=== PATIENT | female | born 2000 | race Caucasian/White ===

== ENCOUNTER → 2020-12-09 | Outpatient (CLI) | payer OTHER ==
[2020-12-09 09:55] VITALS: TEMP 99.2
[2020-12-09 10:02] VITALS: BP 127/74; PULSE 82; RESP 18
--- NOTE | 2020-12-09 10:20 | P.PAINCN ---
History of Present Illness - Reason for Consult Consult date: 12/09/20 - History of Present Illness This is a 20-year-old patient referred by her PCP for complex regional pain syndrome of the left foot. Primarily in her left lower extremity from the mid roland down involving the entirety of the foot. she also has pain in her bilateral hips radiating all the way down to her feet. She describes a crush injury that happened when she was 11 and she has been through a number of therapies since then. Patient mentions that she's been on ketamine infusions which were relatively helpful, and other very strong medication such as methadone morphine and [place]. She has also tried Neurontin in the past with some good benefit but weaned herself off of this. In regards to her pain her pain is mostly located over the left foot described as sharp and burning and constant throughout the day. She endorses significant sensitivity to even light touch, swelling in the left foot, feeling a warmer temperature in that foot, as well as abnormal hair growth. Overall says her whole body feels like it's made of glass and it is always hurting. Mentions that she has had a sympathetic block when she was 13 but was unsure if it was helpful because of the time she was on methadone and she felt like she was a " zombie." In regards to current therapy she uses marijuana, lidocaine patches, hot showers and cold baths. She tried physical therapy but it made it much worse. Patient denies adverse drug effects from medications. Patient also denies new- onset weakness, bowel/bladder incontinence, or any other signs or symptoms of cauda equina syndrome. There are no signs of acute intoxication, and no indications of medication diversion or overuse. In addition to above, 13-point review of systems is also negative for chest pain, shortness of breath, changes in vision, changes in hearing, new onset weakness, abdominal pain, diarrhea, extreme fatigue, malaise, fever, skin changes, homicidal or suicidal ideation, or bowel or bladder incontinence. Physical exam: Vital Signs: Reviewed in EMR GENERAL: Well appearing, in no acute distress PSYCH: Mood and affect is appropriate. Awake, alert, and oriented SKIN: Skin color, texture, turgor normal, no rashes or lesions HEENT: Normocephalic, atraumatic. EOM intact CV: No pedal edema RESP: Respirations are unlabored, no audible wheezing GI: Abdomen non-distended Focused CRPS examination on left foot Sensory: + [place], hyperalgesia Sudomotor: mild edema Vasomotor: no skin changes that i can discern Motor/trophic: intact ROM, no trophic changes Assessment: 1. CRPS type 2 2. Centralized pain Plan: - At this time she does meet CRPS criteria in regards to her left foot. She has mentioned that she had lumbar sympathetic blocks in the past with some relief like to repeat this. - I also feel that she has an element of centralized pain she mentions that she has pain even to light touch throughout her entire lower extremities. I had A long discussion about the pathophysiology of centralized pain and that it is mos tly managed with relaxation techniques as well as some medication management. In regards to medication Cymbalta is a good medication that she is early on and I did talk to her about Neurontin. She mentioned Neurontin was helpful in the past to try this again. We'll put her on uptitrating dose to 300 mg 3 times a day. She is [place] for breakthrough right levator mostly interventional pain clinic and I do not feel opioids to be helpful for long-term given her young age. I spent 45 minutes on patient care today. The time was used to review medical records including relevant urine studies and prescription history (MAPs), review of the available imaging, evaluation and examination the patient, coordination of care at the medical staff and if applicable referring physicians, as well as creation of the medical record. Past Medical History Past Medical History: GERD/Reflux, Pneumonia Additional Past Medical History / Comment(s): recent issues with nausea, complex regional pain syndrome effecting left leg and both hips History of Any Multi-Drug Resistant Organisms: None Reported Past Surgical History: Orthopedic Surgery, Tonsillectomy Additional Past Surgical History / Comment(s): arthroscopy rt knee Past Anesthesia/Blood Transfusion Reactions: Motion Sickness Smoking Status: Never smoker - Past Family History Mother Family Medical History: No Reported History Medications and Allergies Home Medications Medication Instructions Recorded Confirmed Type DULoxetine HCL [Cymbalta] 60 mg PO DAILY 12/08/20 12/09/20 History Etonogestrel [Nexplanon] 1 implant SQ [id number] 12/08/20 12/09/20 History Lurasidone [Latuda] 40 mg PO 2000 12/08/20 12/09/20 History Pantoprazole Sodium [Protonix] 20 mg PO DAILY 12/08/20 12/09/20 History lamoTRIgine [LaMICtal] 100 mg PO BID 12/08/20 12/09/20 History Gabapentin 300 mg PO TID 30 Days #63 cap 12/09/20 Rx Allergies Allergy/AdvReac Type Severity Reaction Status Date / Time No Known Allergies Allergy Verified 12/08/20 13:20 Physical Exam Vitals: Vital Signs Temp 12/09/20 09:50 99.2 F PQRS Measure Charge Sheet PQRS Narrative: Pain Intensity [Bilateral Hip] 7 Scale Used Numeric (1 - 10) Hx Alcohol Use (MH) No Home Medications: Ambulatory Orders DULoxetine HCL [Cymbalta] 60 mg PO DAILY 12/08/20 Etonogestrel [Nexplanon] 1 implant SQ [id number] 12/08/20 Lurasidone [Latuda] 40 mg PO 2000 12/08/20 Pantoprazole Sodium [Protonix] 20 mg PO DAILY 12/08/20 lamoTRIgine [LaMICtal] 100 mg PO BID 12/08/20 Gabapentin 300 mg PO TID 30 Days #63 cap 12/09/20
== END | disposition home or self-care (01) ==
LOC: PNWHC3 09:22
PROVIDERS: ATTEND Anesthesiology
DX: G90.50 Complex regional pain syndrome I, unspecified (principal); G90.59 Complex regional pain syndrome I of other specified site
CPT/HCPCS: 99202

== ENCOUNTER 2021-01-14 08:37 | Day surgery (SDC) | payer OTHER ==
[2021-01-13 08:50] VITALS: BMI 28.3
[2021-01-14] MEDS ORDERED: LACTATED RINGERS 1,000 ML IV ONE (09:34)
[2021-01-14 09:37] VITALS: RESP 16; TEMP 98.4
[2021-01-14] MEDS ORDERED: IOPAMIDOL M200 10 ML VIAL ONE (09:51)
[2021-01-14] MEDS ORDERED: ROPIVACAINE 5MG/ML 20ML VIAL ONE (09:51)
[2021-01-14] MEDS ORDERED: fentaNYL (PF) 50 MCG/ML 2 ML AMP ONE (09:51)
[2021-01-14] MEDS ORDERED: methylPREDNISolone ACETATE 40 MG/ML 1 ML VIAL ONE (09:51)
[2021-01-14] MEDS ORDERED: MIDAZOLAM 2 MG/2 ML VIAL ONE (09:51)
[2021-01-14] MEDS ORDERED: LACTATED RINGERS 1,000 ML IV SCH (10:09)
[2021-01-14] MEDS ORDERED: IV FLUID CONTINUATION 700 ML IV ONE (10:15)
--- NOTE | 2021-01-14 10:15 | P.PCN ---
Date of Procedure: 01/14/21 Procedure(s) Performed: PREOPERATIVE DIAGNOSIS: complex regional pain syndrome.Type II , left lower Extremities. POSTOPERATIVE DIAGNOSIS: complex regional pain syndrome.Type II , left lower Extremities. . PROCEDURE: left side lumbar sympathetic block with fluoroscopic guidence (fluo roscopy images available in radiology department ) ANESTHESIA: Local with 1% lidocaine 3 ml ; moderate sedation with Versed 3 mg and fentanyl. 100 Micrograms EBL: None. PROCEDURE INDICATION: The patient with RSD which has responded to lumbar sympathetic block. The previous one lasted one month. PROCEDURE DESCRIPTION: The patient was seen and identified in the preoperative area. Risks, benefits, complications, and alternatives were discussed with the patient. The patient agreed to proceed with the procedure and signed the consent. IV was started, and vital signs were stable. Patient was taken to the OR and time out was completed. The patient was placed in the prone position on procedure table and a pillow was placed under the abdomen to reduce lumbar lordosis. The lumbosacral area was prepped and draped in the usual sterile fashion. Critical pause was taken. Vital signs were closely monitored during the procedure. Fluoroscopy was used to identify the L2 vertebra and target points were marked.5 cc Lidocaine 1% was used with a 25 guage needle to achieve adequate local anesthesia of the skin and subcutaneous tissue. 22-guage,5-inch spinal needles were inserted through the skin at the lateral border of the left side of L2 vertebral body and then advanced under fluoroscopic guidance in oblique, anterior, and lateral views. The needles were advanced to the angela-lateral border of the vertebra from the left side and 3cc of Iso-View 200 was injected to confirm needle position. After satisfactory positioning of the needles, and negative aspiration of blood, CSF 15 cc of 0.5 % preservative free Ropivacaine with 80 mg Depo-Medrol was injected with intermittent aspiration. [place] were withdrawn intact. COMPLICATIONS: None. DISPOSITION / PLANS: The patient was placed in a supine position and transferred to the recovery area in a stable condition for observation and was discharged from the recovery room after meeting discharge criteria. Home dischar ge instructions given to the patient by the staff. The patient was reexamined prior to discharge. The patient will schedule a follow up in the clinic
--- NOTE | 2021-01-14 10:21 | FL ---
Fluoroscopy History: SYMPATHETIC NERVE BLOCK PAIN SERVICES SYMPATHETIC NERVE L 3 FL TIME19 SECS
[2021-01-14 10:32] VITALS: BP 110/69; PULSE 78
== END 2021-01-14 10:46 | disposition home or self-care (01) ==
LOC: ORPAIN 08:37
PROVIDERS: ATTEND Specialist
DX: G57.72 Causalgia of left lower limb (principal)
CPT/HCPCS: 81025; 64520; J2250; J1030; J3010; Q9966; J2795; 99152

== ENCOUNTER 2021-05-20 07:18 | Day surgery (SDC) | payer OTHER ==
[2021-05-18 09:20] VITALS: BMI 28.7
[~2021-05-20 07:18] MED LIST: LACTATED RINGERS 1,000 ML IV SCH
[2021-05-20 07:40] VITALS: RESP 16; TEMP 97.1
[2021-05-20] MEDS ORDERED: MIDAZOLAM 2 MG/2 ML VIAL ONE (08:00)
[2021-05-20] MEDS ORDERED: methylPREDNISolone ACETATE 40 MG/ML 1 ML VIAL ONE (08:00)
[2021-05-20] MEDS ORDERED: IOPAMIDOL M200 10 ML VIAL ONE (08:00)
[2021-05-20] MEDS ORDERED: fentaNYL (PF) 50 MCG/ML 2 ML AMP ONE (08:00)
[2021-05-20] MEDS ORDERED: ROPIVACAINE 5MG/ML 20ML VIAL ONE (08:00)
--- NOTE | 2021-05-20 08:24 | P.PCN ---
Date of Procedure: 05/20/21 Procedure(s) Performed: PREOPERATIVE DIAGNOSIS: complex regional pain syndrome.Type II , left lower Extremities. POSTOPERATIVE DIAGNOSIS: complex regional pain syndrome.Type II , left lower Extremities. . PROCEDURE: left side lumbar sympathetic block with fluoroscopic guidence (fluo roscopy images available in radiology department ) ANESTHESIA: Local with 1% lidocaine 3 ml ; moderate sedation with Versed 2 mg and fentanyl. 100 Micrograms EBL: None. PROCEDURE INDICATION: The patient with RSD which has responded to lumbar sympathetic block. The previous one lasted one month. PROCEDURE DESCRIPTION: The patient was seen and identified in the preoperative area. Risks, benefits, complications, and alternatives were discussed with the patient. The patient agreed to proceed with the procedure and signed the consent. IV was started, and vital signs were stable. Patient was taken to the OR and time out was completed. The patient was placed in the prone position on procedure table and a pillow was placed under the abdomen to reduce lumbar lordosis. The lumbosacral area was prepped and draped in the usual sterile fashion. Critical pause was taken. Vital signs were closely monitored during the procedure. Fluoroscopy was used to identify the L2 vertebra and target points were marked.5 cc Lidocaine 1% was used with a 25 guage needle to achieve adequate local anesthesia of the skin and subcutaneous tissue. 22-guage,5-inch spinal needles were inserted through the skin at the lateral border of the left side of L2 vertebral body and then advanced under fluoroscopic guidance in oblique, anterior, and lateral views. The needles were advanced to the angela-lateral border of the vertebra from the left side and 3cc of Iso-View 200 was injected to confirm needle position. After satisfactory positioning of the needles, and negative aspiration of blood, CSF 15 cc of 0.5 % preservative free Ropivacaine with 80 mg Depo-Medrol was injected with intermittent aspiration. [place] were withdrawn intact. COMPLICATIONS: None. DISPOSITION / PLANS: The patient was placed in a supine position and transferred to the recovery area in a stable condition for observation and was discharged from the recovery room after meeting discharge criteria. Home discharge instructions given to the patient by the staff. The patient was reexamined prior to discharge. The patient will schedule a follow up in the clinic
[2021-05-20] MEDS ORDERED: IV FLUID CONTINUATION 1,000 ML IV ONE (08:28)
[2021-05-20 08:44] VITALS: BP 106/65; PULSE 64
--- NOTE | 2021-05-20 08:59 | FL ---
EXAMINATION TYPE: FL guided pain mgmt statistic DATE OF EXAM: 05/20/2021 FLUOROSCOPY Fluoroscopy time of 20 seconds was used during sympathetic nerve block. 2 image/s document/s the pro cedure.
== END 2021-05-20 09:04 | disposition home or self-care (01) ==
LOC: ORPAIN 07:18
PROVIDERS: ATTEND Specialist
DX: G57.72 Causalgia of left lower limb (principal)
CPT/HCPCS: 64520; 81025; J2250; J1030; J3010; Q9966; J2795; 99152

== ENCOUNTER → 2021-07-08 | Outpatient (CLI) | payer OTHER ==
[2021-07-08 12:54] VITALS: BP 140/83; PULSE 87; RESP 18; TEMP 98.4
--- NOTE | 2021-07-08 13:48 | P.PN ---
Subjective Progress Note Date: 07/08/21 This is a follow-up visit for this 21 years old female, with a chronic history of severe left foot pain she is diagnosed with CRPS type II left lower extremity, on 07/06/2021 I did perform left side lumbar sympathetic block, patient reports that currently she is complaining of severe low back pain with radiating to both lower extremity, associated with numbness and tingling sensation in the lower extremity bilaterally, she has difficulty ambulating seco ndary to an intensity of the pain, she denies any change in the bowel movement urination, pain is very severe ,and interfere with her activity, she is using a cane to ambulate, she denies any fever or night sweats, Objective - Vital Signs Vital signs: Vital Signs Temp 98.4 F 07/08/21 12:47 Pulse 87 07/08/21 12:47 Resp 18 07/08/21 12:47 BP 140/83 07/08/21 12:47 Pulse Ox 99 07/08/21 12:47 - Exam Physical Examinations : -Constitutiona : Cooperative , not in acute distress . -HEENT : nech : supple , no Lymphadenopathy , normal thyroid size . : eyes : no ptosis , no icterus, no photophobia . - neurologic : Cranial nerve II to XII intact , no focal neurological deffecit . -psychatric : alert , oriented X 3 , appropriate affect , intact judgment and insight . -Lymphatic : no Lymphadenopathy . - musculoskeltal : Lumber spine moter stegnth lower extremities ,thigh and legs 5/5 Right side , 5/5 Left side deep tendon reflexes : normal Knee Jerk , normal ankle Jerk lumber facet Loading Test = negative bilaterally Range of motion of the lumbar spine Flexion 60 degrees, extension 30 degrees strait leg raising test = positive at 45degree bilaterally Fabere test= positive Right , and positive LT . Sever tenderness over the Sacroiliac joint on the Right , and Left sides Normal sensation in the lower ex tremity bilaterally Assessment and Plan Plan: Assessment and plan=1-complex regional pain syndrome type II left lower extremity. 2-lumbar radiculopathy bilateral lower extremity ( new symptoms started after the injection). 3-lumbar herniated disc disease. Patient could benefit from Mobic 7.5 mg twice a day. Patient could benefit from Neurontin 300 mg daily at bedtime increased gradually to 3 times a day. I will order a computed tomography scan of the lumbar spine to evaluate her lumbar spine disc. (Description moving to a different state([place] ) in the next few days, for this reason I will order computed tomography scan which can be done quickly, otherwise the MRI will not be done before she traveled to the [facility]. We'll contact the patient about the results of the computed tomography scan Time with Patient: Less than 30
== END | disposition home or self-care (01) ==
LOC: PNWHC3 11:53
PROVIDERS: ATTEND Specialist
DX: G57.72 Causalgia of left lower limb (principal); M51.26 Other intervertebral disc displacement, lumbar region
CPT/HCPCS: 99211